=== PATIENT | female | born 1985 | race Caucasian/White ===

== ENCOUNTER 2022-07-05 11:39 | Emergency (ER) | payer OTHER ==
[2022-07-05 11:47] VITALS: BP 131/72
[2022-07-05] MEDS ORDERED: AMOX/CLAV 875 MG/125 MG TABLET PO STA (11:59)
--- NOTE | 2022-07-05 12:00 | ED Physician Documentation ---
PD HPI HEENT - Stated complaint Stated Complaint: LEFT EAR PX - Chief complaint Chief Complaint: Heent - History obtained from History obtained from: Patient (She is had a cold for about a week with runny nose and a low-grade fever developing severe left ear pain today but declines prescription pain medications. No history of frequent otitis. No drainage.) Review of Systems Constitutional: reports: Fever. denies: Chills Ears: reports: Ear pain Nose: reports: Rhinorrhea / runny nose, Congestion PD PAST MEDICAL HISTORY - Past Medical History Past Medical History: No Cardiovascular: None Respiratory: None Neuro: None Endocrine/Autoimmune: None GI: None REPAIRING CALIBRATOR: None : None HEENT: None Psych: None Musculoskeletal: None Derm: None - Past Surgical History Past Surgical History: Yes /REPAIRING CALIBRATOR: section - Present Medications Home Medications: Ambulatory Orders Medication Instructions Recorded Confirmed Amox/Clav 875/125 [Augmentin] 1 each PO Q12H #20 tablet 07/05/22 - Allergies Allergies/Adverse Reactions: Allergies Allergy/AdvReac Type Severity Reaction Status Date / Time No Known Drug Allergies Allergy Verified 07/05/22 11:47 - Social History Does the pt smoke?: No Smoking Status: Never smoker Does the pt drink ETOH?: No Does the pt have substance abuse?: No - Immunizations Immunizations are current?: Yes PD ED PE NORMAL - Vitals Vital signs reviewed: Yes - General General: Alert and oriented X 3, No acute distress - HEENT HEENT: Pharynx benign, Other (Severe left otitis media without rupture but discussed with her that she could have pending rupture.) - Neck Neck: Supple, no meningeal sign, No bony TTP - Neuro Neuro: Alert and oriented X 3, Normal speech Results - Vitals Vitals: Vital Signs - 24 hr 07/05/22 11:44 Temperature 36.7 C Heart Rate 71 Respiratory 18 Rate Blood Pressure 131/72 H O2 Saturation 99 Oxygen O2 Source Room air Departure - Departure Disposition: 01 Home, Self Care Clinical Impression: LOM (left otitis media) Qualifiers: Otitis media type: suppurative Chronicity: acute Recurrence: non-recurrent Spontaneous tympanic membrane rupture: without spontaneous rupture Qualified Code(s): H66.002 - Acute suppurative otitis media without spontaneous rupture of ear drum, left ear Condition: Good Record reviewed to determine appropriate education?: Yes Instructions: ED Otitis Media Acute Adult Prescriptions: Amox/Clav 875/125 [Augmentin] 1 each PO Q12H #20 tablet Comments: I sent your prescription electronically to [facility] in [place]. You can take Tylenol and/or ibuprofen as needed for pain. Return for new or worsening symptoms. As discussed, it is a pretty bad ear infection so I would not be surprised if you developed a rupture. In which case close follow-up with your physician to assess for healing is imperative.
== END 2022-07-05 12:06 | disposition home or self-care (01) ==
LOC: ED 11:39
DX: H66.002 Acute suppurative otitis media without spontaneous rupture of ear drum, left ear (principal)
CPT/HCPCS: 99282; A9270